=== PATIENT | female | born 1970 | race Two or more races ===

== ENCOUNTER 2023-02-24 10:48 | Outpatient (CLI) | payer OTHER | END 2023-02-24 10:52 | disposition home or self-care (01) | LOC: SONOGRAMA 10:48 | PROVIDERS: ATTEND Pathology Anatomic Pathology & Clinical Pathology | DX: D44.0 Neoplasm of uncertain behavior of thyroid gland (principal); E06.3 Autoimmune thyroiditis; E04.2 Nontoxic multinodular goiter ==

== ENCOUNTER 2023-09-01 07:28 | Outpatient (CLI) | payer OTHER | END 2023-09-01 07:31 | disposition home or self-care (01) | LOC: SONOGRAMA 07:28 | PROVIDERS: ATTEND Pathology Anatomic Pathology | DX: D44.0 Neoplasm of uncertain behavior of thyroid gland (principal); E04.2 Nontoxic multinodular goiter ==